=== PATIENT | female | born 1975 | race Caucasian/White ===

== ENCOUNTER 2019-01-12 16:48 | Emergency (ER) | payer MEDICAID ==
[~2019-01-12] VITALS: Ht 152.4 cm; Wt 61.9 kg
[2019-01-12 16:50] VITALS: BP 116/69
--- NOTE | 2019-01-12 17:02 | NUR ---
PT AMB TO BED 8
--- NOTE | 2019-01-12 17:21 | NUR ---
PATIENT PRESENTS TO ED WITH c/o llq pain x yesterday pulsating sharp pain---denies injury/trauma denies straining denies dysuria . DENIES N/V/D; SKIN IS PINK/WARM/DRY; AAOX4 WITH EVEN AND STEADY GAIT; LUNGS CLEAR BL; HR EVEN AND REGULAR; PT DENIES ANY FEVER, CP, SOB, OR COUGH AT THIS TIME; PATIENT STATES PAIN OF 10/10 AT THIS TIME; VSS; PATIENT POSITIONED FOR COMFORT; HOB ELEVATED; BEDRAILS UP X2; BED DOWN. ER MD MADE AWARE OF PT STATUS.
--- NOTE | 2019-01-12 17:29 | NUR ---
pt to ct via wc Addendum: 01/12/19 at 1730 by MEAGHAN pt to x-ray via wc
--- NOTE | 2019-01-12 17:36 | NUR ---
returned from radiology via
--- NOTE | 2019-01-12 17:42 | NUR ---
mary rodriguez spoke with pt, i interpreted
[2019-01-12] MEDS ORDERED: MAGNESIUM CITRATE 300 ML BTL PO ONE (17:45)
[2019-01-12 17:52] VITALS: BP 130/75
--- NOTE | 2019-01-12 17:52 | NUR ---
Patient discharged with v/s stable. Written and verbal after care instructions given and explained. Patient alert, oriented and verbalized understanding of instructions. Ambulatory with steady gait. All questions addressed prior to discharge. ID band removed. Patient advised to follow up with PMD. Rx of miralax and docusate sodium given. Patient educated on indication of medication including possible reaction and side effects. Opportunity to ask questions provided and answered.
--- NOTE | 2019-01-12 18:30 | NUR ---
PT NOTIFIED OF KIDNEY STONES--ENCOURAGE TO INCREASE WATER INTAKE FREQUENCY AND F/U WITH PMD WITHIN [facility]----RETURN TO ED IF PAIN NOT TOLERATED OR ANY ER CONCERNS
== END 2019-01-12 17:02 | disposition home or self-care (01) ==
LOC: MED 16:48
DX: K59.00 Constipation, unspecified (principal); N20.0 Calculus of kidney
CPT/HCPCS: 74018; 81002; 81025; 99283

== ENCOUNTER 2019-03-08 16:49 | Emergency (ER) | payer MEDICAID ==
[~2019-03-08] VITALS: Ht 152.4 cm; Wt 63.0 kg
[2019-03-08 17:04] VITALS: BP 120/75
--- NOTE | 2019-03-08 17:30 | NUR ---
C/O LT SHOULDER PAIN X1 WEEK. PT BEND DOWN AT WORK AND CAUSED RATIATING PAIN DOWN LT ARM. 07/15 INTERMITENT PAIN MEDHX:DENIES RX:DENIES
[2019-03-08] MEDS ORDERED: KETOROLAC 30 MG/ML VIAL IM ONE (18:00)
--- NOTE | 2019-03-08 18:42 | NUR ---
Patient discharged with v/s stable. Written and verbal after care instructions given and explained. Patient alert, oriented and verbalized understanding of instructions. Ambulatory with steady gait. All questions addressed prior to discharge. ID band removed. Patient advised to follow up with PMD. Rx of PREDNISONE/NAPROSYN given. Patient educated on indication of medication including possible reaction and side effects. Opportunity to ask questions provided and answered.
[2019-03-08 18:43] VITALS: BP 124/78
== END 2019-03-08 18:42 | disposition home or self-care (01) ==
LOC: MED 16:49
DX: S46.812A Strain of other muscles, fascia and tendons at shoulder and upper arm level, left arm, initial encounter (principal); X50.0XXA Overexertion from strenuous movement or load, initial encounter; Y93.89 Activity, other specified; Y92.69 Other specified industrial and construction area as the place of occurrence of the external cause; Y99.0 Civilian activity done for income or pay
CPT/HCPCS: 96372; 99283; J1885

== ENCOUNTER 2019-07-17 16:50 | Emergency (ER) | payer MEDICAID ==
[~2019-07-17] VITALS: Ht 162.6 cm; Wt 59.0 kg
--- NOTE | 2019-07-17 16:56 | NUR ---
Patient ambulated to bed 07
[2019-07-17 17:00] VITALS: BP 115/78
--- NOTE | 2019-07-17 17:14 | NUR ---
LEFT FLANK PAIN RADIATING TO LEFT LOWER ABDOMEN X 10 DAYS WITH FEVER ON AND OFF HX DENIES STATES SHE WAS HERE APPROX 6 MONTHS AGO DX WITH KIDNEY STONES . DENIES N/V/D; SKIN IS PINK/WARM/DRY; AAOX4 WITH EVEN AND STEADY GAIT; LUNGS CLEAR BL; HR EVEN AND REGULAR; PT DENIES ANY FEVER, CP, SOB, OR COUGH AT THIS TIME; PATIENT STATES PAIN OF 8/10 AT THIS TIME; VSS; PATIENT POSITIONED FOR COMFORT; HOB ELEVATED; BEDRAILS UP X2; BED DOWN. ER MD MADE AWARE OF PT STATUS.
[2019-07-17 18:12] LABS: APPEARANCE,URINE CLEAR (CLEAR); BILIRUBIN,URINE NEGATIVE (NEGATIVE); BLOOD, URINE TRACE-L (NEGATIVE); COLOR,URINE YELLOW (YELLOW); LEUKOCYTE ESTERASE ,URINE NEGATIVE (NEGATIVE); NITRITE, URINE NEGATIVE (NEGATIVE); UGLUCOSE 3+ (NEGATIVE)
[2019-07-17 18:29] LABS: RBC,URINE 0-5 /HPF (0-5)
[2019-07-17 18:30] LABS: WBC,URINE 0-5 /HPF (0-5)
--- NOTE | 2019-07-17 18:46 | NUR ---
PT LEFT FOR CT VIA WHEELCHAIR PER TECH.
--- NOTE | 2019-07-17 19:08 | NUR ---
REPORT RECIEVED FROM GUY VICTORIA. PT AA0X4. RESTING IN BED WITH FAMILY BEDSIDE. NO DISTRESS NOTED. PENDING CT RESULTS
--- NOTE | 2019-07-17 20:10 | NUR ---
VSS AT THIS TIME. PT AA0X4. PENDING CT RESULTS.
[2019-07-17 20:46] VITALS: BP 122/72
--- NOTE | 2019-07-17 20:46 | NUR ---
Patient discharged with v/s stable. Written and verbal after care instructions given and explained. Patient alert, oriented and verbalized understanding of instructions. Ambulatory with steady gait. All questions addressed prior to discharge. ID band removed. Patient advised to follow up with PMD. Rx of MOTRIN AND TRAMADOL WAS given. Patient educated on indication of medication including possible reaction and side effects. Opportunity to ask questions provided and answered.
== END 2019-07-17 20:46 | disposition home or self-care (01) ==
LOC: MED 16:50
DX: N20.0 Calculus of kidney (principal); R05 Cough; F17.210 Nicotine dependence, cigarettes, uncomplicated; Z87.442 Personal history of urinary calculi
CPT/HCPCS: 71045; 74176; 81001; 81025; 99284; Q0092

== ENCOUNTER 2021-03-23 16:43 | Emergency (ER) | payer MEDICAID ==
[~2021-03-23] VITALS: Ht 152.4 cm; Wt 61.7 kg
--- NOTE | 2021-03-23 16:52 | NUR ---
pt ambulated to bed 06.
[2021-03-23 16:53] VITALS: BP 135/67
[2021-03-23] MEDS ORDERED: ACETAMINOPHEN 325 MG TAB PO ONE (17:25)
[2021-03-23] MEDS ORDERED: ALUMINUM HYD/MAG/SIMETHICONE 30 ML UDC PO ONE (17:25)
--- NOTE | 2021-03-23 17:59 | NUR ---
labs drawn and handed to Wendi in lab
[2021-03-23 18:06] LABS: BASOPHILS % (AUTO) 0.7 % (0.0-2.0); EOSINOPHILS # (AUTO) 0.1 K/uL (0-0.4); EOSINOPHILS % (AUTO) 1.5 % (0.0-4.0); HEMATOCRIT 26.6 % (36-48); HEMOGLOBIN 7.7 g/dL (12.0-16.0); LYMPHOCYTES # (AUTO) 1.8 K/uL (2.5-16.5); LYMPHOCYTES % (AUTO) 27.8 % (20.5-51.1); MEAN CORPUSCULAR HEMOGLOBIN 19 pg (27-31); MEAN CORPUSCULAR HGB CONC 29 g/dL (33-37); MEAN CORPUSCULAR VOLUME 64.1 fL (80-94); MONOCYTES # (AUTO) 0.6 K/uL (0.8-1.0); MONOCYTES % (AUTO) 9.8 % (1.7-9.3); NEUTROPHILS # (AUTO) 3.8 K/uL (1.8-7.7); NEUTROPHILS % (AUTO) 60.2 % (42.2-75.2); PLATELET COUNT (AUTO) 271 K/uL (140-450); RED BLOOD CELL COUNT(AUTO) 4.15 MIL/uL (4.20-5.40); RED CELL DISTRIBUTION WIDTH 18.2 % (11.6-13.7); WHITE BLOOD COUNT (AUTO) 6.3 K/uL (4.8-10.8)
--- NOTE | 2021-03-23 18:10 | NUR ---
ASSUMED CARE OF A 45/F FROM TRIAGE WITH A C/O GENERALZIED ABDOMINAL PAIN X1 MONTH. PT REPORTS INCREASED BLOATING OVER THE LAST MONTH. NO OBVIOUS DISTRESS NOTED. PENDING MSE.
[2021-03-23 18:17] LABS: ANION GAP 16.9 (8-16); CARBON DIOXIDE 22.2 mmol/L (21-32); CREATININE 0.6 mg/dL (0.6-1.3); POTASSIUM 4.1 mmol/L (3.5-5.1)
[2021-03-23 18:38] LABS: ALBUMIN 3.4 g/dL (3.4-5.0); BILIRUBIN,DIRECT 0.1 mg/dL (0.0-0.3); MAGNESIUM 1.4 mg/dL (1.8-2.4); PHOSPHORUS 3.5 mg/dL (2.5-4.9)
[2021-03-23 18:59] LABS: TOTAL BILIRUBIN 0.2 mg/dL (0.0-1.0)
--- NOTE | 2021-03-23 19:12 | NUR ---
REPORT GIVEN TO JULIEN GRANADO. ALL CARE TRANSFERED.
[2021-03-23] MEDS ORDERED: MAGNESIUM OXIDE 400 MG TAB PO ONE (19:20)
--- NOTE | 2021-03-23 19:30 | NUR ---
assumed care.ua dipped, results to chart. aware.
[2021-03-23] MEDS ORDERED: OMEP20EC11 PO (19:36)
[2021-03-23] MEDS ORDERED: METF500T2 PO (19:36)
[2021-03-23] MEDS ORDERED: HYDR-2734 TP (19:36)
[2021-03-23] MEDS ORDERED: FERR325E14 PO (19:36)
--- NOTE | 2021-03-23 19:52 | NUR ---
READY FOR DISCHARGE. WATER GIVEN, TOLERATES WELL. D/C'D HOME AMBULATORY IN NAD
[2021-03-23 20:00] VITALS: BP 138/74
== END 2021-03-23 19:52 | disposition home or self-care (01) ==
LOC: MED 16:43
DX: R10.13 Epigastric pain (principal); E11.9 Type 2 diabetes mellitus without complications; D64.9 Anemia, unspecified; K64.9 Unspecified hemorrhoids; M25.471 Effusion, right ankle; K21.9 Gastro-esophageal reflux disease without esophagitis; Z79.84 Long term (current) use of oral hypoglycemic drugs; Z79.899 Other long term (current) drug therapy
CPT/HCPCS: 36415; 71045; 73610; 80048; 80076; 81002; 81025; 83735; 84100; 84484; 85025; 93005; 99285

== ENCOUNTER 2021-06-16 11:39 | Emergency (ER) | payer MEDICAID ==
[~2021-06-16] VITALS: Ht 160 cm; Wt 60.3 kg
[~2021-06-16 11:39] MED LIST: FERR325E14 PO; HYDR-2734 TP; METF500T2 PO; OMEP20EC11 PO
[2021-06-16 11:56] VITALS: BP 127/70
--- NOTE | 2021-06-16 11:58 | NUR ---
PT SENT TO LOBBY TO WAIT FOR AVAILABLE BED OR MSE.
[2021-06-16] MEDS ORDERED: HYDROcodone/APAP 5/325 MG 1 TAB TAB PO ONE (12:55)
--- NOTE | 2021-06-16 13:05 | NUR ---
PT WAS CALLED FOR MED ADMINISTRATION, NO ANSWER AT THIS TIME IN LOBBY
--- NOTE | 2021-06-16 13:15 | NUR ---
PT IN LOBBY, WAS TAKEN TO CT PRIOR.
[2021-06-16 13:39] LABS: BASOPHILS % (AUTO) 0.7 % (0.0-2.0); EOSINOPHILS # (AUTO) 0.1 K/uL (0-0.4); EOSINOPHILS % (AUTO) 1.2 % (0.0-4.0); HEMATOCRIT 31.5 % (36-48); HEMOGLOBIN 9.2 g/dL (12.0-16.0); LYMPHOCYTES # (AUTO) 1.8 K/uL (2.5-16.5); LYMPHOCYTES % (AUTO) 27.7 % (20.5-51.1); MEAN CORPUSCULAR HEMOGLOBIN 19 pg (27-31); MEAN CORPUSCULAR HGB CONC 29 g/dL (33-37); MEAN CORPUSCULAR VOLUME 64.2 fL (80-94); MONOCYTES # (AUTO) 0.6 K/uL (0.8-1.0); MONOCYTES % (AUTO) 8.6 % (1.7-9.3); NEUTROPHILS # (AUTO) 3.9 K/uL (1.8-7.7); NEUTROPHILS % (AUTO) 61.8 % (42.2-75.2); PLATELET COUNT (AUTO) 290 K/uL (140-450); RED CELL DISTRIBUTION WIDTH 18.9 % (11.6-13.7); WHITE BLOOD COUNT (AUTO) 6.4 K/uL (4.8-10.8)
[2021-06-16 13:54] LABS: ANION GAP 13.4 (8-16); CARBON DIOXIDE 27.1 mmol/L (21-32); CREATININE 0.7 mg/dL (0.6-1.3); POTASSIUM 4.5 mmol/L (3.5-5.1); TOTAL BILIRUBIN 0.2 mg/dL (0.0-1.0)
[2021-06-16 14:50] LABS: APPEARANCE,URINE HAZY (CLEAR); BILIRUBIN,URINE NEGATIVE (NEGATIVE); BLOOD, URINE NEGATIVE (NEGATIVE); COLOR,URINE YELLOW (YELLOW); LEUKOCYTE ESTERASE ,URINE NEGATIVE (NEGATIVE); NITRITE, URINE NEGATIVE (NEGATIVE); UGLUCOSE 3+ (NEGATIVE)
[2021-06-16] MEDS ORDERED: BEN10 PO (15:21)
[2021-06-16 15:50] VITALS: BP 130/75
--- NOTE | 2021-06-16 15:50 | NUR ---
Patient discharged with v/s stable. Written and verbal after care instructions given and explained. Patient alert, oriented and verbalized understanding of instructions. Ambulatory with steady gait. All questions addressed prior to discharge. ID band removed. Patient advised to follow up with PMD. Rx of Dicyclomine given. Patient educated on indication of medication including possible reaction and side effects. Opportunity to ask questions provided and answered.
== END 2021-06-16 15:50 | disposition home or self-care (01) ==
LOC: MED 11:39
DX: R10.31 Right lower quadrant pain (principal)
CPT/HCPCS: 36415; 80053; 81003; 81025; 83690; 85025; 99284

== ENCOUNTER 2022-02-15 12:12 | Emergency (ER) | payer MEDICAID ==
[~2022-02-15] VITALS: Ht 152.4 cm; Wt 59.0 kg
[~2022-02-15 12:12] MED LIST changes: +BEN10 PO; -METF500T2 PO; +[UNRECOGNIZED DRUG - CODE] PO
[2022-02-15 12:16] VITALS: BP 127/55
--- NOTE | 2022-02-15 12:39 | NUR ---
PT TAKEN TO BED 5.
--- NOTE | 2022-02-15 13:00 | NUR ---
PT OFFERED WARM BLANKET
[2022-02-15 13:41] LABS: BASOPHILS % (AUTO) 0.4 % (0.0-2.0); EOSINOPHILS % (AUTO) 0.7 % (0.0-4.0); HEMATOCRIT 29.6 % (36-48); HEMOGLOBIN 9.2 g/dL (12.0-16.0); LYMPHOCYTES # (AUTO) 1.5 K/uL (2.5-16.5); MEAN CORPUSCULAR HEMOGLOBIN 23 pg (27-31); MEAN CORPUSCULAR HGB CONC 31 g/dL (33-37); MONOCYTES # (AUTO) 0.5 K/uL (0.8-1.0); MONOCYTES % (AUTO) 7.2 % (1.7-9.3); NEUTROPHILS # (AUTO) 4.5 K/uL (1.8-7.7); NEUTROPHILS % (AUTO) 68.7 % (42.2-75.2); PLATELET COUNT (AUTO) 210 K/uL (140-450); RED CELL DISTRIBUTION WIDTH 18.2 % (11.6-13.7); WHITE BLOOD COUNT (AUTO) 6.5 K/uL (4.8-10.8)
[2022-02-15 13:43] LABS: APPEARANCE,URINE CLOUDY (CLEAR); BILIRUBIN,URINE NEGATIVE (NEGATIVE); BLOOD, URINE 3+ (NEGATIVE); COLOR,URINE RED (YELLOW); LEUKOCYTE ESTERASE ,URINE TRACE (NEGATIVE); NITRITE, URINE POSITIVE (NEGATIVE); UGLUCOSE 3+ (NEGATIVE)
[2022-02-15 14:01] LABS: RBC,URINE 20-50 /HPF (0-5); WBC,URINE 0-5 /HPF (0-5)
[2022-02-15 14:04] LABS: CALCIUM OXALATE CRYSTALS,UR None Seen /HPF (None Seen); FINE GRANULAR CASTS,URINE None Seen /LPF (None Seen); HYALINE CASTS, URINE None Seen /LPF (None Seen); OTHER CRYSTALS,URINE None Seen /HPF (None Seen); TRICHOMONAS,URINE None Seen /HPF (None Seen); TRIPLE PHOSPHATE CRYSTAL,UR None Seen /HPF (None Seen); URIC ACID CRYSTALS,URINE None Seen /HPF (None Seen); URINE AMORPHOUS URATE None Seen /HPF (None Seen); YEAST,URINE None Seen /HPF (None Seen)
[2022-02-15 14:05] LABS: COARSE GRANULAR CASTS,URINE None Seen /LPF (None Seen); OTHER CASTS, URINE None Seen /LPF (None Seen); RED BLOOD CELL CASTS,URINE 0-10 /LPF (None Seen); WAXY CASTS,URINE None Seen /LPF (None Seen)
[2022-02-15] MEDS ORDERED: IBUP-2213 PO (14:05)
[2022-02-15 15:44] LABS: ALBUMIN 3.2 g/dL (3.4-5.0); ANION GAP 12.8 (8-16); CARBON DIOXIDE 22.5 mmol/L (21-32); CREATININE 0.7 mg/dL (0.6-1.3); POTASSIUM 4.3 mmol/L (3.5-5.1); TOTAL BILIRUBIN 0.2 mg/dL (0.0-1.0)
--- NOTE | 2022-02-15 16:41 | NUR ---
46 y/o female, c/o heavy vaginal bleeding for 3 months, pt states she is passing huge clots, feeling dizzy, pelvic pain (cramping sensation), dizzy. pt states this morning the bleeding has been heavier, soaked through 10 pads with increased urinary freuency and urine output. pt was seen by few weeks ago and was dx with fibroids. skin is pink/warm/dry. a&o x4 with even and steady gait. lungs clear bl, heart rate even and regular. pt denies any fever, cp, sob, or cough at this time. pt states pain is 10/10 at this time. patient positioned for comfort. hob elevated. bed down. ermd made aware of pt. pmh: dm2 allergy: norco (itching)
--- NOTE | 2022-02-15 17:06 | NUR ---
Female Prosthetic Lab Technician accompanied female patient for Pelvic Exam.
[2022-02-15] MEDS ORDERED: ESTROGENS CONJUGATED 25 MG INJ VIAL IM ONE (17:15)
[2022-02-15 17:49] VITALS: BP 124/63
[2022-02-15] MEDS ORDERED: WATER STERILE 10 ML MC ONE (18:23)
--- NOTE | 2022-02-15 19:10 | NUR ---
Patient discharged with v/s stable. Written and verbal after care FOR UTERIE FIBROIDS AND MENORRHAGIA instructions given and explained. Patient alert, oriented and verbalized understanding of instructions. Ambulatory with steady gait. All questions addressed prior to discharge. ID band removed. Patient advised to follow up with PMD. Rx of IBUPROFEN given. Opportunity to ask questions provided and answered.
--- NOTE | 2022-02-15 19:11 | NUR ---
The patient's care was reviewed and supervised by Yisel Dave RN.
== END 2022-02-15 19:08 | disposition home or self-care (01) ==
LOC: MED 12:12
DX: N92.0 Excessive and frequent menstruation with regular cycle (principal); D50.0 Iron deficiency anemia secondary to blood loss (chronic); Z87.42 Personal history of other diseases of the female genital tract; E11.9 Type 2 diabetes mellitus without complications; K21.9 Gastro-esophageal reflux disease without esophagitis; Z79.899 Other long term (current) drug therapy; Z79.1 Long term (current) use of non-steroidal anti-inflammatories (NSAID)
CPT/HCPCS: 36415; 80053; 81001; 81025; 85025; 86886; 86900; 86901; 96372; 99285; J1410

== ENCOUNTER 2022-02-20 17:23 | Emergency (ER) | payer MEDICAID ==
[~2022-02-20] VITALS: Ht 148.6 cm; Wt 58.1 kg
[~2022-02-20 17:23] MED LIST changes: +IBUP-2213 PO
[2022-02-20 17:51] VITALS: BP 113/62
== END 2022-02-20 18:45 | disposition home or self-care (01) ==
LOC: MED 17:23
DX: N93.8 Other specified abnormal uterine and vaginal bleeding (principal); E11.9 Type 2 diabetes mellitus without complications; K21.9 Gastro-esophageal reflux disease without esophagitis; Z79.1 Long term (current) use of non-steroidal anti-inflammatories (NSAID); Z79.899 Other long term (current) drug therapy; Z79.84 Long term (current) use of oral hypoglycemic drugs
CPT/HCPCS: 81002; 81025; 99282